=== PATIENT | male | born 1960 | race Caucasian/White ===

== ENCOUNTER 2022-09-28 13:57 | Emergency (ER) | payer MEDICARE, MEDICAID ==
[~2022-09-28] VITALS: Ht 165.1 cm; Wt 100.0 kg
[2022-09-28 14:14] VITALS: BP 110/76; PULSE 66; RESP 16; O2SAT 97
== END 2022-09-28 15:02 | disposition home or self-care (01) ==
LOC: ER 13:58
DX: M25.561 Pain in right knee (principal); M25.562 Pain in left knee; G89.29 Other chronic pain
CPT/HCPCS: 99284